=== PATIENT | male | born 1970 | race Caucasian/White ===

== ENCOUNTER 2017-10-27 10:01 | Emergency (ER) | payer MEDICAID ==
[~2017-10-27] VITALS: Ht 167.6 cm; Wt 91.0 kg
[2017-10-27] MEDS ORDERED: KETOROLAC 30MG/ML VIAL IV STA (10:19)
[2017-10-27 10:48] LABS: BASOPHILS % 0.8 % (0.0-2.0); EOSINOPHILS % 3.2 % (0.0-5.0); HEMATOCRIT. 44.4 % (42.0-52.0); HEMOGLOBIN. 15.3 g/dL (14.0-18.0); LYMPHOCYTES % 39.3 % (20.0-50.0); MEAN CORPUSCULAR HEMOGLOBIN 30.7 pg (28.0-32.0); MEAN CORPUSCULAR VOLUME 89.2 fL (80.0-94.0); MEAN PLATELET VOLUME 7.4 fl (7.4-10.4); NEUTROPHILS % 46.7 % (40.0-76.0); PLATELET 233 x1000/uL (130-400); RED BLOOD CELL COUNT 4.98 mill/uL (4.7-6.1); RED CELL DISTRIBUTION WIDTH 13.6 % (11.6-14.6)
[2017-10-27 10:52] LABS: PROTHROMBIN TIME 10.2 sec (9.4-11.6)
[2017-10-27 11:04] LABS: CARBON DIOXIDE 31 mEq/L (21-32); CHLORIDE 99 mEq/L (98-107); TROPONIN I < 0.02 ng/mL (0.00-0.04)
[2017-10-27 12:02] VITALS: BP 142/68
== END 2017-10-27 12:03 | disposition home or self-care (01) ==
LOC: ER 10:24
DX: R07.9 Chest pain, unspecified (principal); I10 Essential (primary) hypertension; E11.9 Type 2 diabetes mellitus without complications
CPT/HCPCS: 36415; 71010; 80053; 84484; 85025; 85610; 93005; 96374; 99285; J1885; Z7610

== ENCOUNTER 2018-01-13 14:41 | Emergency (ER) | payer MEDICAID, OTHER ==
[~2018-01-13] VITALS: Ht 175.3 cm; Wt 100.0 kg
[~2018-01-13 14:41] MED LIST: AMLO2.5T45 PO; ASPI-1159 PO; ATOR10TA69 PO; METF-516 PO
[2018-01-13] MEDS ORDERED: MORPHINE SULFATE 4 MG/ML CPJ (NOT FOR IM USE) IV STA (15:23)
[2018-01-13] MEDS ORDERED: MAGNESIUM/ALUMINUM HYDROXIDE/SIMETHICONE 30ML UDC PO STA (15:23)
[2018-01-13] MEDS ORDERED: ONDANSETRON HCL 4MG/2ML VIAL IV STA (15:23)
[2018-01-13] MEDS ORDERED: VISCOUS LIDOCAINE 2% 15 ML UDC PO STA (15:23)
[2018-01-13] MEDS ORDERED: FAMOTIDINE 20MG/2ML VIAL IV STA (15:23)
[2018-01-13] MEDS ORDERED: DICYCLOMINE 10 MG/5 ML ORAL SYR PO STA (15:23)
[2018-01-13 16:04] LABS: BASOPHILS % 0.9 % (0.0-2.0); EOSINOPHILS % 4.4 % (0.0-5.0); HEMATOCRIT. 41.1 % (42.0-52.0); HEMOGLOBIN. 13.8 g/dL (14.0-18.0); LYMPHOCYTES % 27.4 % (20.0-50.0); MEAN CORPUSCULAR HEMOGLOBIN 30.3 pg (28.0-32.0); MEAN PLATELET VOLUME 7.8 fl (7.4-10.4); MONOCYTES % 8.3 % (2.0-8.0); PLATELET 223 x1000/uL (130-400); RED BLOOD CELL COUNT 4.57 mill/uL (4.7-6.1); RED CELL DISTRIBUTION WIDTH 14.2 % (11.6-14.6)
[2018-01-13 16:06] LABS: PROTHROMBIN TIME 10.4 sec (9.4-11.6)
[2018-01-13 16:09] LABS: CHLORIDE 104 mEq/L (98-107)
[2018-01-13 17:55] VITALS: BP 125/75
== END 2018-01-13 17:45 | disposition home or self-care (01) ==
LOC: ER 14:41
DX: K80.20 Calculus of gallbladder without cholecystitis without obstruction (principal); E11.9 Type 2 diabetes mellitus without complications; E78.00 Pure hypercholesterolemia, unspecified; I10 Essential (primary) hypertension; Z79.82 Long term (current) use of aspirin; Z83.3 Family history of diabetes mellitus
CPT/HCPCS: 36415; 76705; 80053; 83690; 85025; 85610; 99285; Z7610; J2270; J3490

== ENCOUNTER 2018-01-16 15:24 | Emergency (ER) | payer MEDICAID ==
[~2018-01-16] VITALS: Ht 175.3 cm; Wt 54.0 kg
[2018-01-16] MEDS ORDERED: FAMOTIDINE 20MG TABLET PO ONE (22:45)
[2018-01-16] MEDS ORDERED: ONDANSETRON 4MG ODT PO ONE (22:45)
[2018-01-16] MEDS ORDERED: MAGNESIUM/ALUMINUM HYDROXIDE/SIMETHICONE 30ML UDC PO ONE (22:45)
[2018-01-16 23:08] LABS: BASOPHILS % 0.9 % (0.0-2.0); EOSINOPHILS % 7.3 % (0.0-5.0); HEMOGLOBIN. 13.8 g/dL (14.0-18.0); MEAN CORPUSCULAR HEMOGLOBIN 30.2 pg (28.0-32.0); MEAN CORPUSCULAR VOLUME 89.4 fL (80.0-94.0); MEAN PLATELET VOLUME 7.6 fl (7.4-10.4); MONOCYTES % 9.7 % (2.0-8.0); NEUTROPHILS % 46.1 % (40.0-76.0); PLATELET 221 x1000/uL (130-400); RED BLOOD CELL COUNT 4.59 mill/uL (4.7-6.1); RED CELL DISTRIBUTION WIDTH 14.2 % (11.6-14.6)
[2018-01-16 23:12] LABS: CHLORIDE 104 mEq/L (98-107)
[2018-01-16 23:13] LABS: PROTHROMBIN TIME 10.5 sec (9.4-11.6)
[2018-01-17 00:07] LABS: CLARITY URINE CLEAR (CLEAR); COLOR URINE YELLOW (YELLOW); KETONES URINE NEGATIVE (NEGATIVE); LEUKOCYTE ESTERASE URINE NEGATIVE (NEGATIVE); NITRITE URINE NEGATIVE (NEGATIVE); OCCULT BLOOD URINE NEGATIVE (NEGATIVE); PROTEIN URINE NEGATIVE (NEGATIVE); SPECIFIC GRAVITY URINE 1.009 (1.005-1.030); UROBILINOGEN URINE 0.2 E.U./dL (0.2-1.0)
[2018-01-17 02:09] VITALS: BP 128/76
== END 2018-01-17 02:11 | disposition home or self-care (01) ==
LOC: ER 21:19
DX: K80.20 Calculus of gallbladder without cholecystitis without obstruction (principal); I10 Essential (primary) hypertension; E11.9 Type 2 diabetes mellitus without complications; E78.00 Pure hypercholesterolemia, unspecified; Z79.82 Long term (current) use of aspirin; Z79.84 Long term (current) use of oral hypoglycemic drugs; Z83.3 Family history of diabetes mellitus
CPT/HCPCS: 36415; 76705; 80053; 81003; 83690; 85025; 85610; 99285; Q0162

== ENCOUNTER 2018-05-15 15:06 | Inpatient (IN) | payer OTHER, MEDICAID ==
[~2018-05-15] VITALS: Ht 175.3 cm; Wt 106.2 kg
[2018-05-15 16:44] LABS: BASOPHILS % 0.9 % (0.0-2.0); EOSINOPHILS % 3.2 % (0.0-5.0); HEMATOCRIT. 41.1 % (42.0-52.0); HEMOGLOBIN. 13.9 g/dL (14.0-18.0); LYMPHOCYTES % 27.8 % (20.0-50.0); MEAN CORPUSCULAR HEMOGLOBIN 30.3 pg (28.0-32.0); MEAN CORPUSCULAR VOLUME 89.7 fL (80.0-94.0); MEAN PLATELET VOLUME 7.4 fl (7.4-10.4); MONOCYTES % 8.4 % (2.0-8.0); NEUTROPHILS % 59.7 % (40.0-76.0); PLATELET 244 x1000/uL (130-400); RED BLOOD CELL COUNT 4.59 mill/uL (4.7-6.1); RED CELL DISTRIBUTION WIDTH 14.3 % (11.6-14.6)
[2018-05-15 16:46] LABS: CHLORIDE 105 mEq/L (98-107)
[2018-05-15 16:49] LABS: PARTIAL THROMBOPLASTIN TIME 27.3 sec (23.4-31.0); PROTHROMBIN TIME 10.3 sec (9.4-11.6)
[2018-05-15 16:55] LABS: CREATINE KINASE 160 IU/L (39-308)
[2018-05-15 16:57] LABS: CREATINE KINASE MB FRACTION 1.4 ng/mL (0.5-3.6)
[2018-05-15] MEDS ORDERED: ASPIRIN 81MG TABLET PO ONE (17:15)
[2018-05-15] MEDS ORDERED: SODIUM CHLORIDE 0.9% 1,000 ML IV ONE (17:51)
[2018-05-15] MEDS ORDERED: KETOROLAC 15MG/ML VIAL IV PRN (18:15)
[2018-05-15] MEDS ORDERED: ONDANSETRON HCL 4MG/2ML VIAL IV PRN (18:15)
[2018-05-15] MEDS ORDERED: LORAZEPAM 0.5MG TABLET PO PRN (18:15)
[2018-05-15] MEDS ORDERED: CLONIDINE 0.1MG TABLET PO PRN (18:15)
[2018-05-15] MEDS ORDERED: DOCUSATE SODIUM 100MG CAPSULE PO PRN (18:15)
[2018-05-15] MEDS ORDERED: IPRATROPIUM/ALBUTEROL 0.5-3(2.5)MG/3ML NEB INH PRN (18:15)
[2018-05-15] MEDS ORDERED: ZOLPIDEM TARTRATE 5MG TABLET PO PRN (18:15)
[2018-05-15] MEDS ORDERED: MAGNESIUM/ALUMINUM HYDROXIDE/SIMETHICONE 30ML UDC PO PRN (18:15)
[2018-05-15] MEDS ORDERED: DEXTROSE 50% WATER 50ML SYRINGE IV PRN (18:15)
[2018-05-15] MEDS ORDERED: GUAIFENESIN 200MG/10ML SUGAR FREE UDC PO PRN (18:15)
[2018-05-15] MEDS ORDERED: NITROGLYCERIN 0.4MG TABLET SL SL PRN (18:15)
[2018-05-15] MEDS ORDERED: ACETAMINOPHEN 325MG TABLET PO PRN (18:15)
[2018-05-15] MEDS ORDERED: NA PHOS,M-B/NA PHOS,DI-BA ENEMA 118ML PR PRN (18:15)
[2018-05-15 20:45] VITALS: BP 139/80
[2018-05-15] MEDS: INSULIN LISPRO 100 UNITS/ML SUBCUT SCH (21:00)
[2018-05-15] MEDS ORDERED: ATORVASTATIN CALCIUM 10MG TABLET PO SCH (21:00)
[2018-05-15] MEDS ORDERED: ENOXAPARIN 40MG/0.4ML SYR SUBCUT SCH (21:30)
[2018-05-15] MEDS: BLOOD SUGAR DIAGNOSTIC STRIP TEST SCH (21:45)
[2018-05-15] MEDS: SUCRALFATE 1 G/10 ML UDC PO SCH (21:56)
[2018-05-15] MEDS: FAMOTIDINE 20MG TABLET PO SCH (21:56)
[2018-05-15] MEDS: LISINOPRIL 20MG TABLET PO SCH (21:57)
[2018-05-15] MEDS: METOPROLOL TARTRATE 25MG TABLET PO SCH (21:57)
[2018-05-15 22:07] VITALS: BP 139/80
[2018-05-16] VITALS: BP 136/80
[2018-05-16 02:15] LABS: CREATINE KINASE 125 IU/L (39-308)
[2018-05-16 04:00] VITALS: BP 116/69
[2018-05-16] MEDS: SUCRALFATE 1 G/10 ML UDC PO SCH (06:05)
[2018-05-16] MEDS: BLOOD SUGAR DIAGNOSTIC STRIP TEST SCH (06:07)
[2018-05-16 06:14] LABS: CREATINE KINASE 114 IU/L (39-308)
[2018-05-16 06:15] LABS: CREATINE KINASE MB FRACTION 0.7 ng/mL (0.5-3.6)
[2018-05-16] MEDS: INSULIN LISPRO 100 UNITS/ML SUBCUT SCH (07:15)
[2018-05-16 08:00] VITALS: BP 116/75
[2018-05-16] MEDS ORDERED: ASPIRIN 325MG EC TABLET PO SCH (09:00)
[2018-05-16] MEDS: FAMOTIDINE 20MG TABLET PO SCH (09:24)
[2018-05-16] MEDS: METOPROLOL TARTRATE 25MG TABLET PO SCH (09:24)
[2018-05-16] MEDS: LISINOPRIL 20MG TABLET PO SCH (09:25)
[2018-05-16 12:00] VITALS: BP 120/73
[2018-05-16 12:50] VITALS: BP 121/62
[2018-05-16] MEDS ORDERED: ENOXAPARIN 30MG/0.3ML SYR SUBCUT SCH (15:30)
== END 2018-05-16 14:15 | disposition home or self-care (01) | DRG 243 ==
LOC: ER 15:38 → EDBEDREQ 17:18 → 5WST 17:19 → ENRESERV 17:59
PROVIDERS: ADMIT Internal Medicine; ATTEND Internal Medicine
DX: K21.9 Gastro-esophageal reflux disease without esophagitis (principal); I10 Essential (primary) hypertension; E11.9 Type 2 diabetes mellitus without complications; E78.5 Hyperlipidemia, unspecified; E78.00 Pure hypercholesterolemia, unspecified; Z82.49 Family history of ischemic heart disease and other diseases of the circulatory system; Z83.3 Family history of diabetes mellitus; Z79.899 Other long term (current) drug therapy
CPT/HCPCS: 36415; 71045; 76705; 80053; 80061; 82550; 82553; 82962; 83036; 83690; 83880; 84443; 84484; 85025; 85610; 85730; 93005; 93970; 99285; J1650; J1885; J7030

== ENCOUNTER 2018-05-22 16:26 | Emergency (ER) | payer MEDICAID ==
[~2018-05-22] VITALS: Ht 165.1 cm; Wt 95.0 kg
[2018-05-22 16:36] VITALS: BP 161/92
[2018-05-22 20:37] LABS: BASOPHILS % 0.5 % (0.0-2.0); EOSINOPHILS % 1.6 % (0.0-5.0); HEMATOCRIT. 40.7 % (42.0-52.0); HEMOGLOBIN. 13.8 g/dL (14.0-18.0); LYMPHOCYTES % 24.8 % (20.0-50.0); MEAN CORPUSCULAR HEMOGLOBIN 30.1 pg (28.0-32.0); MEAN PLATELET VOLUME 7.9 fl (7.4-10.4); MONOCYTES % 6.5 % (2.0-8.0); NEUTROPHILS % 66.6 % (40.0-76.0); PLATELET 243 x1000/uL (130-400); RED BLOOD CELL COUNT 4.57 mill/uL (4.7-6.1); RED CELL DISTRIBUTION WIDTH 14.2 % (11.6-14.6)
[2018-05-22 20:42] LABS: CHLORIDE 106 mEq/L (98-107)
[2018-05-22 20:43] LABS: PROTHROMBIN TIME 10.7 sec (9.4-11.6)
== END 2018-05-22 20:50 | disposition left against medical advice (07) ==
LOC: ER 16:26
DX: R10.11 Right upper quadrant pain (principal); R07.89 Other chest pain; R11.2 Nausea with vomiting, unspecified; R42 Dizziness and giddiness; R00.0 Tachycardia, unspecified; I10 Essential (primary) hypertension; E11.9 Type 2 diabetes mellitus without complications; E78.00 Pure hypercholesterolemia, unspecified; Z79.899 Other long term (current) drug therapy
CPT/HCPCS: 36415; 76705; 80053; 83690; 85025; 85610; 93005; 99285